=== PATIENT | male | born 1970 ===

== ENCOUNTER 2020-04-20 16:31 | Emergency (ER) | payer SELFPAY | END 2020-04-20 18:50 | LOC: DL.ED 16:31 | DX: Z53.21 Procedure and treatment not carried out due to patient leaving prior to being seen by health care provider (principal) ==

== ENCOUNTER 2021-03-18 16:01 | Emergency (ER) | payer SELFPAY ==
[2021-03-18 17:09] LABS: CORONAVIRUS COVID-19 NAA POSITIVE (NEGATIVE)
== END 2021-03-18 17:20 | disposition home or self-care (01) ==
LOC: DL.ED 16:01
DX: U07.1 COVID-19 (principal)
CPT/HCPCS: 0240U; 87081; 87430; 99283; 99282